=== PATIENT | female | born 2000 | race Caucasian/White ===

== ENCOUNTER 2023-03-25 21:18 | Emergency (ER) | payer OTHER ==
[~2023-03-25] VITALS: Ht 154.9 cm; Wt 77.1 kg
[2023-03-25 21:24] VITALS: BP 142/95
[2023-03-25] MEDS ORDERED: Cleocin HCl150 MG PO (23:28)
[2023-03-26] MEDS ORDERED: ONDA4ODT MM (10:16)
== END 2023-03-25 23:39 | disposition home or self-care (01) ==
LOC: ER 21:18
DX: R22.0 Localized swelling, mass and lump, head (principal)
CPT/HCPCS: 96365; 99282-25; J7030

== ENCOUNTER 2023-03-26 08:29 | Emergency (ER) | payer OTHER ==
[~2023-03-26] VITALS: Ht 154.9 cm; Wt 77.0 kg
[~2023-03-26 08:29] MED LIST: Cleocin HCl150 MG PO
[2023-03-26 09:55] VITALS: BP 119/80
[2023-03-26] MEDS ORDERED: ONDA4ODT MM (10:16)
== END 2023-03-26 10:32 | disposition home or self-care (01) ==
LOC: ER 08:29
DX: O99.612 Diseases of the digestive system complicating pregnancy, second trimester (principal); O26.892 Other specified pregnancy related conditions, second trimester; K04.7 Periapical abscess without sinus; R11.2 Nausea with vomiting, unspecified; Z3A.14 14 weeks gestation of pregnancy
CPT/HCPCS: 99283; A9270